=== PATIENT | female | born 1980 | race Caucasian/White ===

== ENCOUNTER 2020-12-26 12:34 | Emergency (ER) | payer MEDICAID ==
[~2020-12-26] VITALS: Ht 154.9 cm; Wt 95.3 kg
[2020-12-26 12:50] VITALS: BP_SYST 124
--- NOTE | 2020-12-26 12:53 | NUR ---
Patient to ER bed 04 to gown for evaluation. Side rails up.
[2020-12-26] MEDS ORDERED: NEU300 PO (13:07)
--- NOTE | 2020-12-26 13:10 | NUR ---
Pt presents to ed with back pain. Pt states she has chronic back pain and lost her job and has not been able to get her medications. Pt is continent, move all extremities equally, steady gait. No signs of distress noted.
--- NOTE | 2020-12-26 13:10 | NUR ---
ER at bedside examining patient.
--- NOTE | 2020-12-26 13:23 | NUR ---
Patient given written and verbal discharge instructions and verbalizes understanding. ER MD discussed with patient the results and treatment provided. Patient in stable condition. ID arm band removed. IV catheter removed intact and dressing applied, no active bleeding. Rx of Neurontin given. Patient educated on pain management and to follow up with PMD. Pain Scale 0. Opportunity for questions provided and answered. Medication side effect fact sheet provided.
== END 2020-12-26 13:23 | disposition home or self-care (01) ==
LOC: SED 12:34
DX: M54.42 Lumbago with sciatica, left side (principal); Z88.0 Allergy status to penicillin; Z79.899 Other long term (current) drug therapy
CPT/HCPCS: 99283